=== PATIENT | female | born 1940 | race Caucasian/White ===

== ENCOUNTER → 2016-06-13 | Outpatient (CLI) | payer MEDICARE, BC ==
[~2016-06-13] MED LIST: AMBIEN10 MG PO; ASPIRIN81 MG PO; CALTRATE 600 WI1 TAB PO; CARTIA XT180 MG PO; CYMBALTA30 MG PO; FISH OIL1 GM PO; MOBIC15 MG PO; NEXIUM40 MG PO; NORCO 325-5 MG1 TAB PO; PROAIR HFA8.5 GM INH; SINEQUAN10 MG PO; SYNTHROID200 MCG PO; TAMBOCOR50 MG PO; XANAX1 MG PO
== END | disposition short-term general hospital (02) ==
LOC: CLORTH 09:38
DX: M19.012 Primary osteoarthritis, left shoulder (principal)

== ENCOUNTER → 2016-07-25 | Outpatient (CLI) | payer MEDICARE, BC | END | disposition short-term general hospital (02) | LOC: CLORTH 02:24 | DX: Z47.1 Aftercare following joint replacement surgery (principal); Z96.612 Presence of left artificial shoulder joint ==

== ENCOUNTER → 2016-08-22 | Outpatient (CLI) | payer MEDICARE, BC | END | disposition short-term general hospital (02) | LOC: CLORTH 04:59 | DX: Z47.1 Aftercare following joint replacement surgery (principal); Z96.612 Presence of left artificial shoulder joint ==